=== PATIENT | male | born 1940 | race Caucasian/White ===

== ENCOUNTER 2022-09-26 10:38 | Outpatient (CLI) | payer MEDICARE, SELFPAY ==
[2022-09-26 12:06] LABS: Chloride* 108 mmol/L (96-114); Potassium* 4.3 mmol/L (3.6-5.1); Sodium* 142 mmol/L (135-149)
[2022-09-26 12:08] LABS: Carbon Dioxide* 28 mmol/L (20-32); Cholesterol* 120 mg/dL (90-199); Creatinine* 1.7 mg/dL (0.5-1.5); Estimated Glomerular Filt Rate 40 ml/min
[2022-09-26 12:09] LABS: Blood Urea Nitrogen* 28 mg/dL (7-30); Calcium* 9.7 mg/dL (8.4-10.6); Glucose* 94 mg/dL (60-115); Triglycerides* 102 mg/dL (40-149); Uric Acid* 5.6 mg/dL (2.2-8.4)
[2022-09-26 12:10] LABS: HDL Cholesterol* 48 mg/dL (>=40); LDL Cholesterol Calculated 52 mg/dL (<100)
== END 2022-09-26 10:39 | disposition home or self-care (01) ==
LOC: NFLDREF 10:38
PROVIDERS: PCP Internal Medicine; Visit Provider Internal Medicine
DX: Z00.00 Encounter for general adult medical examination without abnormal findings (principal); Z13.6 Encounter for screening for cardiovascular disorders; M10.9 Gout, unspecified
CPT/HCPCS: 80048; 80061; 84550

== ENCOUNTER 2023-10-16 10:00 | Outpatient (CLI) | payer MEDICARE, SELFPAY | END 2023-10-16 10:01 | disposition home or self-care (01) | LOC: NFLDREF 10-18 08:47 | PROVIDERS: PCP Internal Medicine; Referring Provider Internal Medicine; Visit Provider Internal Medicine | DX: I10 Essential (primary) hypertension (principal); E78.5 Hyperlipidemia, unspecified; M10.9 Gout, unspecified | CPT/HCPCS: 80048; 80061; 84550 ==

== ENCOUNTER 2023-12-01 10:00 | Outpatient (RCR) | payer MEDICARE, SELFPAY ==
--- NOTE | 2023-11-15 16:59 | PT.OPEX ---
[facility] Eval PT [facility] Outpatient Eval Start: 11/15/23 15:29 Freq: Status: Active Protocol: Document 11/15/23 15:30 NLR (Rec: 11/15/23 16:47 NLR [id number]) E-signed By Sugar Henry DPT Physical Therapy Outpatient Evaluation Insurance Information Recert Due Date 02/13/24 Insurance Name Medicare B Insurance Information/Comments AARP Medicare Complete Medical Diagnosis S93.609A Sprain of foot, initial encounter Treating Diagnosis M25.572 Pain in L ankle/foot Referring MD Sylvia Orozco PA-C Subjective Subjective Patient arrives for PT evaluation stating he was seen by a chiropractor that had him do heel raises about a month ago that caused left lateral ankle and foot pain. Pain improved on it's own, but was not gone. He recently returned from [place], and yesterday when he got out of his car, he stepped weird and felt a crunch. He now presents with left lateral foot and ankle pain and moderate pitting edema. Pain Comments Pain is sharp and achy, lateral left foot and ankle. 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 Preferred Name LILLIE Precautions Treatment Precautions/Contraindications None known. Weight Bearing Status Weight Bear as Tolerated Therapy Limitations/Systems Review Not Limited Objective Other/Pertinent Objective ROM: Grossly WFL, slight limitation with eversion B and symmetrical STRENGTH: Left ankle eversion 4/5 with pain, inversion 4+/5 no pain PALPATION: No tenderness at left anterior talofibular ligament. Tender at fibularis insertion on lateral 5th metatarsal EDEMA: Mild to moderate pitting edema left lateral foot and ankle GAIT: Patient ambulating L WBAT with crutches, tends to lean forward over crutches. Assessment Assessment/Impression Patient is a very pleasant 83 year old male who presents with acute on chronic left lateral ankle pain and edema that started approximately one month ago when a chiropractor had his do heel raises and then he had about three days of pain, now aggravated yesterday when stepping out of his car he felt a crack and presents with pain and swelling. Likely injury to fibularis longus and or brevis , or differential high ankle sprain or combination of both. He now presents with pain with eversion, moderate pitting edema and lateral foot pain. Skilled PT is appropriate for edema management, pain control and strengthening when appropriate to minimize likelihood of recurrance. Primary Functional Limitations Difficulty walking without crutches due to pain. Plan of Care Rehabilitation Potential Excellent Rehabilitation Potential Comments Patient is otherwise healthy and motivated to improve in order to return to prior level of function. Coordination/Communication With Referral Source Treatment Plan/Direct Interventions Gait Training,Ice/Cold/ Vasopneumatic,Manual Therapy, Neuromuscular Re-ed,Self-Care/ Home Management,Therapeutic Activities,Therapeutic Exercises Frequency/Duration 1X/week for 6-10 visits Evaluation Billing Untimed Code Treatment Minutes 30 PT Eval No Charge No Complexity Low Certification Information Initial Certification Date 11/15/23 Ending Certification Date 02/13/24 Provider Signature Shows Agreement With POC & Medical Necessity Physician Signature & Date Requested Please Sign/Date Here Physician Comment/Change : Physician NPI Number #
== END 2023-12-01 17:23 | disposition home or self-care (01) ==
PROVIDERS: PCP Internal Medicine; Visit Provider Physician Assistant
DX: S93.602A Unspecified sprain of left foot, initial encounter (principal); Z51.89 Encounter for other specified aftercare
CPT/HCPCS: 97110; 97116; 97140; 97161; 97530

== ENCOUNTER 2024-10-17 09:29 | Outpatient (CLI) | payer MEDICARE, SELFPAY | END 2024-10-17 09:30 | disposition home or self-care (01) | LOC: NFLDREF 10-21 00:53 | PROVIDERS: PCP Internal Medicine; Referring Provider Internal Medicine; Visit Provider Internal Medicine | DX: E78.5 Hyperlipidemia, unspecified (principal); I10 Essential (primary) hypertension; M10.9 Gout, unspecified | CPT/HCPCS: 80048; 80061; 84550 ==

== ENCOUNTER 2025-07-16 12:22 | Outpatient (CLI) | payer MEDICARE, SELFPAY | END 2025-07-16 12:23 | disposition home or self-care (01) | LOC: AMB 07-21 15:42 | PROVIDERS: PCP Internal Medicine; Visit Provider Family Medicine | DX: S49.91XA Unspecified injury of right shoulder and upper arm, initial encounter (principal); S49.92XA Unspecified injury of left shoulder and upper arm, initial encounter; W10.9XXA Fall (on) (from) unspecified stairs and steps, initial encounter; Y92.008 Other place in unspecified non-institutional (private) residence as the place of occurrence of the external cause | CPT/HCPCS: A0425; A0427 ==

== ENCOUNTER 2025-07-16 13:05 | Emergency (ER) | payer MEDICARE, SELFPAY ==
[2025-07-16] VITALS (21 sets, daily range): BP systolic 116–144; BP diastolic 53–98; PULSE 50–74; RESP 14–25; TEMP 35.9; O2SAT 96–98; BMI 27.4
--- NOTE | 2025-07-16 13:42 | CRLHL7_ITS ---
For Patients: As a result of the Century Cures Act, medical imaging exams and procedure reports are released immediately into your electronic medical record. You may view this report before your referring provider. If you have questions, please contact your health care provider. Indication: Pain over the anterior shoulder after fall Comparison: None available. Technique: AP and lateral views right shoulder were obtained. Findings: There is no displaced fracture or dislocation. Somewhat high-riding humeral head commensurate with likely chronic rotator cuff pathology with moderate degenerative changes of the acromioclavicular and glenohumeral joints. There are circumscribed calcified lesions within the visualized upper arm and chest wall soft tissues likely representing calcified phleboliths. Impression: Severe degenerative changes of the acromioclavicular and glenohumeral joint with somewhat high-riding humeral head commensurate with chronic rotator cuff pathology. Scattered calcified circumscribed lesions within the visualized soft tissues may represent small calcified phleboliths. Dictated by Andi Stone MD @ 07/16/2025 3:14:42 PM (Electronically Signed)
--- NOTE | 2025-07-16 13:42 | CRLHL7_ITS ---
For Patients: As a result of the Century Cures Act, medical imaging exams and procedure reports are released immediately into your electronic medical record. You may view this report before your referring provider. If you have questions, please contact your health care provider. Indication: Pain over the anterior shoulder after fall Comparison: None available. Technique: AP and lateral views left shoulder were obtained. Findings: There is no displaced fracture or dislocation. Degenerative changes of the acromioclavicular and glenohumeral joints are appreciated with mildly high-riding humeral head commensurate with sequela of chronic rotator cuff pathology. The soft tissues are unremarkable. Impression: Degenerative changes of the shoulder without displaced fracture. Dictated by Andi Stone MD @ 07/16/2025 3:15:43 PM (Electronically Signed)
--- NOTE | 2025-07-16 13:42 | CRLHL7_ITS ---
For Patients: As a result of the Century Cures Act, medical imaging exams and procedure reports are released immediately into your electronic medical record. You may view this report before your referring provider. If you have questions, please contact your health care provider. Indication: Injury Technique: CT examination of the facial bones was performed. Imaging was acquired in the axial plane. Contrast is not administered. Sagittal and coronal reformatted imaging was performed. The study was acquired from above the frontal sinuses through below the hyoid bone. Comparison: None Findings: Soft tissue swelling in the left preseptal orbital and subcutaneous frontal area on the left. The globe is intact. No foreign bodies observed. No fracture, dislocation or destructive process. Minor paranasal sinus mucosal inflammatory disease. Incidental torus mandibularis Impression: Soft tissue injury/swelling in the left subcutaneous frontal area and left supraorbital area. No foreign bodies. The subjacent globe appears normal. No fracture, dislocation or destructive process. Please note that all CT scans at this facility use dose modulation, iterative reconstruction, and/or weight-based dosing when appropriate to reduce radiation dose to as low as reasonably achievable. Dictated by Zander Sanders MD @ 07/16/2025 2:50:46 PM (Electronically Signed)
--- NOTE | 2025-07-16 13:43 | CRLHL7_ITS ---
For Patients: As a result of the Century Cures Act, medical imaging exams and procedure reports are released immediately into your electronic medical record. You may view this report before your referring provider. If you have questions, please contact your health care provider. INDICATION: Fall down steps. TECHNIQUE: CT chest, abdomen and pelvis acquired 100 cc Omnipaque 350 IV contrast. COMPARISON: Abdominal CT dated 05/09/2019. FINDINGS: CHEST: No consolidation. No significant ground-glass. Mild bibasilar reticulation as evidence for mild fibrosis. No pleural effusion or pneumothorax. No anterior mediastinal hematoma seen. No mediastinal or hilar lymphadenopathy. The heart is normal in size. No significant pericardial effusion. There is motion within the aortic root which limits evaluation. No aortic dissection is seen. A 4.1 centimeter ascending aortic aneurysm is seen. No inflammatory fat stranding is seen or abnormal wall thickening. The descending aorta is normal in caliber. No axillary lymphadenopathy. There is likely a small sebaceous cyst within the midline chest measuring 12 millimeters (series 4, image 55). No hematoma is seen or significant posttraumatic inflammation. No fracture seen. ABDOMEN AND PELVIS: The liver is normal in size. A subcentimeter hypoattenuating lesion within the right pollo liver is too small to characterize and likely represents a tiny cyst (series 9, image 19). There is no perihepatic fluid or stranding. The gallbladder is partially distended with mild motion artifact obscuring. No evidence of acute cholecystitis. No biliary ductal dilatation. The spleen is normal in size and obscured by motion. No fluid or stranding is seen. The pancreas is partially obscured by motion as well without definite abnormality. The adrenal glands demonstrate thickening and nodularity which is not substantially changed compared to 2019 and likely benign. Redemonstrated is near complete cystic replacement of the left kidney and to a lesser extent the right kidney as evidence for polycystic kidney disease. A few of the lesions demonstrate internal septations. No definite nodular soft tissue component is seen. There is no hydronephrosis. Overall the lesions have increased in size compared to 2019. The largest on the left on axial images measures 10.5 centimeters, previously approximately 9.3 centimeters. The largest on the right on axial images measures 9.5 centimeters, previously proximal; 6 centimeters. The urinary bladder is distended without substantial thickening or stranding. Stool throughout the colon. Diverticulosis is present without evidence of acute diverticulitis. The bowel is displaced by the patient`s renal lesions. The small bowel is nondilated without evidence of a small-bowel obstruction. There are some areas of swelling of the small bowel without evidence of acute obstructing hernia. The stomach is partially distended and obscured by motion. No free air. No ascites. No organized drainable fluid collection. No evidence of traumatic hernia. No retroperitoneal hematoma seen. No gross lymphadenopathy. The prostate is prominent. No subcutaneous hematoma is seen or significant inflammatory fat stranding. Bone windows demonstrate no acute fracture. IMPRESSION: 1. Examination is limited by motion. No gross CT evidence of acute traumatic injury within the chest, abdomen and pelvis. 2. A 4.0 centimeter ascending aortic aneurysm. 3. Redemonstrated findings of polycystic kidney disease with overall increase in size of lesions compared to 2019. Please note that all CT scans at this facility use dose modulation, iterative reconstruction, and/or weight-based dosing when appropriate to reduce radiation dose to as low as reasonably achievable. Dictated by Prince Wise MD @ 07/16/2025 2:58:05 PM (Electronically Signed)
--- NOTE | 2025-07-16 13:43 | CRLHL7_ITS ---
For Patients: As a result of the Century Cures Act, medical imaging exams and procedure reports are released immediately into your electronic medical record. You may view this report before your referring provider. If you have questions, please contact your health care provider. INDICATION: Injury COMPARISON: None TECHNIQUE: CT examination of the head was performed as axial sections without intravenous contrast. Images were obtained from the vertex of the skull through the skull base. Please note that all CT scans at this facility use dose modulation, iterative reconstruction, and/or weight-based dosing when appropriate to reduce radiation dose to as low as reasonably achievable. FINDINGS: The brain shows no sign of mass lesion, mass effect, hemorrhage, or edema. There are involutional changes. There is mild cortical atrophy and there is mild white matter disease. There is no hydrocephalus. The visualized portions of the orbits are normal in appearance. Subcutaneous hematoma/soft tissue injury in the left supraorbital/left frontal area. No subjacent calvarial fracture. The osseous structures are normal in appearance with no sign of abnormality in the skull base or calvarium. IMPRESSION: 1. Involutional changes. No acute intracranial posttraumatic findings. 2. Soft tissue injury/subcutaneous hematoma in the left supraorbital/subcutaneous frontal area. No visible regional orbital or skull fracture. Please refer to the separate facial bone report. Please note that all CT scans at this facility use dose modulation, iterative reconstruction, and/or weight-based dosing when appropriate to reduce radiation dose to as low as reasonably achievable. Dictated by Zander Sanders MD @ 07/16/2025 2:45:19 PM (Electronically Signed)
--- NOTE | 2025-07-16 13:43 | CRLHL7_ITS ---
For Patients: As a result of the Century Cures Act, medical imaging exams and procedure reports are released immediately into your electronic medical record. You may view this report before your referring provider. If you have questions, please contact your health care provider. INDICATION: Injury COMPARISON: None TECHNIQUE: CT examination of the cervical spine is performed without contrast using spiral technique. Thin axial, sagittal and coronal reconstructions were made. Please note that all CT scans at this facility use dose modulation, iterative reconstruction, and/or weight-based dosing when appropriate to reduce radiation dose to as low as reasonably achievable. FINDINGS: : There is straightening which is fused to the muscle spasm or positioning. No bridgette posttraumatic malalignment. Moderate degenerative changes diffusely. No visible acute fracture, dislocation or destructive process. Atherosclerotic vascular calcifications. IMPRESSION: Straightening. Degenerative changes. No visible acute fracture, dislocation or destructive process. Please note that all CT scans at this facility use dose modulation, iterative reconstruction, and/or weight-based dosing when appropriate to reduce radiation dose to as low as reasonably achievable. Dictated by Zander Sanders MD @ 07/16/2025 2:47:50 PM (Electronically Signed)
[2025-07-16 14:07] LABS: Creatinine, Point-of-Care* 1.7 mg/dl (0.6-1.3)
--- NOTE | 2025-07-16 14:32 | ED_ITS ---
HPI - Fall General Date Seen: 07/16/25 Chief Complaint: Fall/Minor Trauma Stated Complaint: Fall Time Seen by Provider: 07/16/25 13:36 Source: patient Mode of arrival: EMS Limitations: no limitations History of Present Illness HPI Narrative: Patient is an 84-year-old male with a history of chronic kidney disease stage 3, essential hypertension presenting to the emergency department after a fall. States he tripped and fell down 13 [address]ed steps. His family is in the room with him and states he has been acting normal since then. He states that anything hurts right now with his bilateral anterior shoulders. States he did hit his head and does have abrasions to his forehead. Denies any headaches. Denies chest pain, abdominal pain, back pain, extremity pain. Reiterates his only pain right now is in the shoulders. Family states he is acting normally. He is not on any blood thinners. No other concerns noted at this time. States there is no lightheadedness or dizziness before or after the fall. Related Data Home Medications ?Medication ?Instructions ?Recorded ?Confirmed vardenafil 10 mg tablet 10 mg PO QDAY PRN 08/11/22 0 11/11/24 aspirin 81 mg capsule 81 mg PO QDAY 10/20/2211/11 multivitamin 1 tab PO QAM 10/20/22 Previous Rx's ?Medication ?Instructions ?Recorded epinephrine 0.3 mg/0.3 mL 0.3 mg (0.3 mL) IM ONCE PRN 10/29/22 injection, auto-injector anaphylaxis #2 ea allopurinol 100 mg tablet 100 mg PO QDAY #90 tabs 10/05 02/28 carvedilol 12.5 mg tablet 12.5 mg PO BID #180 tabs clonidine HCl 0.1 mg tablet 0.05 - 0.1 mg (0.5 - 1 x 0 .1 mg) 10/21/24 PO BID #180 tabs lisinopril 40 mg tablet 40 mg PO QDAY #90 tabs 10/21 potassium chloride 10 mEq 10 meq PO QDAY #90 caps 10/05 02/28 capsule,extended release simvastatin 20 mg tablet 20 mg PO QHS #90 tabs triamterene 75 1 tab PO QDAY #90 tabs 10/21 mg-hydrochlorothiazide 50 mg tablet Allergies Allergy/AdvReac Type Severity Reaction Status Date / Time bee venom protein (honey bee) Allergy Severe Anaphylaxis Verified 11/11/24 10:32 amlodipine Allergy Unknown swelling Verified 11/11/24 10:32 Review of Systems Status of ROS: Reports: 10 or more systems reviewed and unremarkable except as noted in History and below PFSH PFSH Surgical History History of malignant melanoma ?Z85.820 - Personal history of malignant melanoma of skin (ICD-10) History of squamous cell carcinoma excision ?Z98.890 - Other specified postprocedural states (ICD-10) ?Z85.9 - Personal history of malignant neoplasm, unspecified (ICD-10) Status post cataract extraction ?Z98.49 - Cataract extraction status, unspecified eye (ICD-10) Otosclerosis (03/23/09) ?H80.90 - Unspecified otosclerosis, unspecified ear (ICD-10) History of right inguinal hernia repair (03/23/09) ?Z98.890 - Other specified postprocedural states (ICD-10) ?Z87.19 - Personal history of other diseases of the digestive system (ICD-10) Social History Narrative: non-smoker, no alcohol use. 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 What is your current living situation?: I presently have a place to live Problems where you live: no known problems In the past 12 months, utilities in danger of being shut off: no In past 12 months, lack of transportation kept you from medical appts, meetings, work, or getting things needed for daily living: no In the past 12 mos, have been you worried that your food would run out before you had money to buy more?: never true In the past 12 mos, the food you bought just didn't last and you didn't have money to buy more?: never true How often does anyone, including family, friends and others, physically hurt you : never How often does anyone, including family, friends and others, insult or talk down to you: never How often does anyone, including family, friends and others, threaten you with harm: never How often does anyone, including family, friends and others, scream or curse at you: never Exam Narrative: Exam Narrative: Airway: Airway patent, Breathing: Good bilateral air movement, no signs of tracheal deviation normal appearing chest wall movement, oxygenating appropriately Circulation: No signs of obvious hemorrhage, pulses +2 bilaterally in all extremities Disability: GCS 15 Constitutional: Pt is oriented to person, place, and time. Pt appears well- developed and well-nourished. HENT: Head: Abrasion noted above left eye. Mouth/Throat: Oropharynx is clear and moist. No hematomas or lacerations or abrasions to face or scalp OP clear, no blood, no malocclusion, dentition intact Nares clear, no nasal septal hematoma TMs clear, no hemotympanum Midface stable Eyes: Conjunctivae and EOM are normal. Pupils are equal, round, and reactive to light. Neck: C-spine midline nontender, no step-offs Cardiovascular: Normal rate, regular rhythm and normal heart sounds. Pulmonary/Chest: Effort normal and breath sounds normal. No respiratory distress. He has no wheezes. CTA bilaterally Abdominal: Soft. Bowel sounds are normal. Pt exhibits no distension. There is no tenderness. Musculoskeletal: Tenderness noted bilateral on the acromion. No other family numbness noted. No chest wall tenderness, no deformities, full ROM extremities, Chest wall stable, Pelvis stable and non-tender, No vertebral TTP and spine without stepoffs Neurological: Pt is alert and oriented to person, place, and time., Moving all extremities willfully, able to wiggle all fingers and toes, Sensation grossly intact, GCS 15 Skin: Skin is warm and dry. No abrasions, no lacerations Psychiatric: Behavior is appropriate for situation Const: Vital Signs, click to edit/add: Vital Signs - 24 hr 07/16/25 13:16 07/16/25 13:17 07/16/25 13:18 Temperature Pulse Rate Pulse Rate [Pulse Oximeter] Respiratory Rate 21 22 20 Blood Pressure 119/69 124/98 H Blood Pressure [Ri ght Upper Arm] Pulse Oximetry Oxygen Delivery Me thod 07/16/25 13:19 07/16/25 13:30 07/16/25 13:32 Temperature 96.6 F L Pulse Rate Pulse Rate [Pulse Oximeter] 50 L Respiratory Rate 16 18 24 Blood Pressure 116/54 L Blood Pressure [Ri ght Upper Arm] 119/69 Pulse Oximetry 98 Oxygen Delivery Me thod Room Air 07/16/25 13:33 07/16/25 13:47 07/16/25 14:00 Temperature Pulse Rate Pulse Rate [Pulse Oximeter] Respiratory Rate 23 14 18 Blood Pressure 126/57 L Blood Pressure [Ri ght Upper Arm] Pulse Oximetry Oxygen Delivery Me thod 07/16/25 14:02 07/16/25 14:36 07/16/25 14:36 Temperature Pulse Rate Pulse Rate [Pulse Oximeter] Respiratory Rate 20 Blood Pressure 126/53 L 144/61 H 144/61 H Blood Pressure [Ri ght Upper Arm] Pulse Oximetry Oxygen Delivery Me thod 07/16/25 14:47 07/16/25 14:53 07/16/25 15:00 Temperature Pulse Rate 71 72 Pulse Rate [Pulse Oximeter] Respiratory Rate 19 Blood Pressure 136/61 Blood Pressure [Ri ght Upper Arm] Pulse Oximetry 97 96 Oxygen Delivery Me thod 07/16/25 15:02 07/16/25 15:03 07/16/25 15:15 Temperature Pulse Rate 72 72 69 Pulse Rate [Pulse Oximeter] Respiratory Rate 19 25 H 16 Blood Pressure 137/69 Blood Pressure [Ri ght Upper Arm] Pulse Oximetry 96 97 96 Oxygen Delivery Me thod 07/16/25 15:17 07/16/25 15:18 07/16/25 15:30 Temperature Pulse Rate 67 70 74 Pulse Rate [Pulse Oximeter] Respiratory Rate 16 15 21 Blood Pressure 127/65 Blood Pressure [Ri ght Upper Arm] Pulse Oximetry 96 97 96 Oxygen Delivery Me thod 07/16/25 15:32 Temperature Pulse Rate 72 Pulse Rate [Pulse Oximeter] Respiratory Rate 15 Blood Pressure 134/75 Blood Pressure [Ri ght Upper Arm] Pulse Oximetry 96 Oxygen Delivery Me thod Course Vital Signs Vital signs: Initial Vital Signs Respiratory Rate 21 07/16/25 13:16 Blood Pressure 119/69 07/16/25 13:16 Blood Pressure Mean 85 07/16/25 13:16 Vital Signs Respiratory Rate 21 07/16/25 13:16 Blood Pressure 119/69 07/16/25 13:16 Temperature 96.6 F L 07/16/25 13:19 Pulse Rate 72 07/16/25 15:32 Respiratory Rate 15 07/16/25 15:32 Blood Pressure 134/75 07/16/25 15:32 Pulse Oximetry 96 07/16/25 15:32 Oxygen Delivery Method Room Air 07/16/25 13:19 Medications Administered Medications: Discontinued Medications Generic Name Dose Route Start Last Admin Trade Name Melissa PRN Reason Stop Dose Admin Morphine Sulfate 4 mg 07/16/25 14:57 07/16/25 15:02 Morphine 4 Mg/Ml Inj IVP 07/16/25 14:58 4 mg ONCE ONE Administration MDM - Fall MDM Narrative Medical decision making narrative: Patient is an 84-year-old male presenting to the emergency department after a fall. Based on description this was a mechanical fall. Considering mechanism action will order CT scan of the head, cervical spine, facial bones, chest abdomen pelvis. He does have chronic kidney disease but do believe a contrast is necessary. Point of care creatinine was 1.7. And will also x-ray both of his shoulders as those hurt. CT scan of his head shows a left supraorbital hematoma as interpreted by myself the radiologist. CT scan of cervical spine and face reviewed by myself and the radiologist showed no acute concerning abnormalities. CT scan of the chest abdomen pelvis interpreted by myself and the radiologist shows increase in size of polycystic kidney disease lesions along with a 4.0 cm ascending aortic aneurysm. He can follow up outpatient for this. X-ray showed no acute concerning findings as interpreted by myself and the radiologist. The abrasion to the left forehead is not amenable to suturing or closure. He will be discharged. Lab Data Labs: Lab Results 07/16/25 Range/Units 13:52 POC Creatinine 1.7 H (0.6-1.3) mg/dl Imaging Data CT scan head: Attestation: I have reviewed the pertinent imaging results. Radiologist's impression: 1. Involutional changes. No acute intracranial posttraumatic findings. 2. Soft tissue injury/subcutaneous hematoma in the left supraorbital/subcutaneous frontal area. No visible regional orbital or skull fracture. Please refer to the separate facial bone report. Please note that all CT scans at this facility use dose modulation, iterative reconstruction, and/or weight-based dosing when appropriate to reduce radiation dose to as low as reasonably achievable. Dictated by Zander Sanders MD @ 07/16/2025 2:45:[address] scan facial bones: Attestation: I have reviewed the pertinent imaging results. Radiologist's impression: Soft tissue injury/swelling in the left subcutaneous frontal area and left supraorbital area. No foreign bodies. The subjacent globe appears normal. No fracture, dislocation or destructive process. Please note that all CT scans at this facility use dose modulation, iterative reconstruction, and/or weight-based dosing when appropriate to reduce radiation dose to as low as reasonably achievable. Dictated by Zander Sanders MD @ 07/16/2025 2:50:[address] scan cervical spine: Attestation: I have reviewed the pertinent imaging results. Radiologist's impression: Straightening. Degenerative changes. No visible acute fracture, dislocation or destructive process. Please note that all CT scans at this facility use dose modulation, iterative reconstruction, and/or weight-based dosing when appropriate to reduce radiation dose to as low as reasonably achievable. Dictated by Zander Sanders MD @ 07/16/2025 2:47:[address] Chest/Ab/Pelvis: Attestation: I have reviewed the pertinent imaging results. Radiologist's impression: 1. Examination is limited by motion. No gross CT evidence of acute traumatic injury within the chest, abdomen and pelvis. 2. A 4.0 centimeter ascending aortic aneurysm. 3. Redemonstrated findings of polycystic kidney disease with overall increase in size of lesions compared to 2019. Please note that all CT scans at this facility use dose modulation, iterative reconstruction, and/or weight-based dosing when appropriate to reduce radiation dose to as low as reasonably achievable. Dictated by Prince Wise MD @ 07/16/2025 2:58:05 PM X-ray left shoulder: Attestation: I have reviewed the pertinent imaging results. Radiologist's impression: Degenerative changes of the shoulder without displaced fracture. Dictated by Andi Stone MD @ 07/16/2025 3:15:43 PM X-ray right shoulder: Attestation: I have reviewed the pertinent imaging results. Radiologist's impression: Severe degenerative changes of the acromioclavicular and glenohumeral joint with somewhat high-riding humeral head commensurate with chronic rotator cuff pathology. Scattered calcified circumscribed lesions within the visualized soft tissues may represent small calcified phleboliths. Dictated by Andi Stone MD @ 07/16/2025 3:14:42 PM Discharge Plan Discharge Clinical Impression: Avulsion of skin Closed head injury Qualifiers: Encounter type: initial encounter Qualified Code(s): S09.90XA - Unspecified injury of head, initial encounter Patient Disposition: Home, Self-Care Condition: Stable Instructions: Head Injury (DC) Additional Instructions: CT scan shows enlarging of the lesions associated with the polycystic kidney disease. You also have a 4 cm ascending aortic aneurysm. Aneurysm was of this size typically do not require surgical intervention by do recommend following up with your primary care provider. Return to emergency department for new or worsening symptoms. Use the Percocet as needed for pain but be careful as it does increase your fall risk. You can take half a pill at a time if needed. Percocet provided via [employer]. Do not take Tylenol as Tylenol is and the Percocet the ready Prescriptions: No Action aspirin 81 mg capsule 81 mg PO QDAY multivitamin Tablet 1 tab PO QAM allopurinol 100 mg tablet 100 mg PO QDAY Qty: 90 3RF carvedilol 12.5 mg tablet 12.5 mg PO BID Qty: 180 3RF Rx Instructions: must administer with a meal/food clonidine HCl 0.1 mg tablet 0.05 - 0.1 mg PO BID Qty: 180 3RF lisinopril 40 mg tablet 40 mg PO QDAY Qty: 90 3RF potassium chloride 10 mEq capsule, extended release 10 meq PO QDAY Qty: 90 3RF triamterene-hydrochlorothiazid 75-50 mg tablet 1 tab PO QDAY Qty: 90 3RF simvastatin 20 mg tablet 20 mg PO QHS Qty: 90 3RF vardenafil 10 mg tablet 10 mg PO QDAY PRN Rx Instructions: TAKE ONE TABLET ONE HOUR BEFORE INTERCOURSE epinephrine 0.3 mg/0.3 mL auto-injector 0.3 mg IM ONCE PRN (Reason: anaphylaxis) Qty: 2 1RF Follow Up/Referrals: Mary Myles MD [Primary Care Provider, Internal Medicine] Stand Alone Forms: [employer] Info Instructions
[2025-07-16] MEDS: MORPHINE 4 MG/ML INJ IVP (15:02)
--- OUTSIDE RECORDS SUMMARY | 2025-07-16 16:32 | XMS_ITS | Clinical Summary ---
Author Organization [facility] Address [address] [place] [id number] Care Team Providers Care Teacher Home Therapy Name Role Phone Mary Myles MD Primary Care Provider [phone] Crow Miller MD Unavailable [phone] Crow Miller MD Unavailable [phone] Allergies Active AllergyReactionsCriticalityNoted DateCommentsBee VenomUnknown,Other (See Comments)08/21/2018 Unknown Medications MedicationSigDispense QuantityRefillsLast FilledStart DateEnd DateStatus triamterene-hydrochlorothiazide (MAXZIDE) 75-50 MG per tablet Indications:Cataracts, both eyesTake 0.5 tablets by mouth dailyActive propranolol HCl 60 MG TABS Indications:Cataracts, both eyesTake 60 mg by mouth dailyActive potassium chloride (K-DUR) 10 MEQ tablet Indications:Cataracts, both eyesTake 10 tablets by mouth dailyActive lisinopril (PRINIVIL,ZESTRIL) 10 MG tablet Indications:Cataracts, both eyesTake 10 mg by mouth dailyActive aspirin 81 MG tablet Indications:Cataracts, both eyesTake 81 mg by mouth dailyActive carvedilol (COREG) 12.5 MG tablet 06/05/2019Active simvastatin (ZOCOR) 20 MG tablet 05/06/2019Active allopurinol (ZYLOPRIM) 100 MG tablet Take 1 tablet by mouth daily at 2 pm3Active Vardenafil HCl (LEVITRA PO) Take 10 mg by mouth daily as pbxyso641Discontinued(Patient Discharge) Family History Medical HistoryRelationCommentsHypertensionFatherHypertensionMotherDiabetesNo family hx ofGlaucomaNo family hx ofMacular DegenerationNo family hx ofRelation StatusCommentsFatherMother Social History Tobacco UseTypesPacks/DayYears UsedDateSmoking Tobacco: FormerCigarettes Smokeless Tobacco: NeverAlcohol UseStandard Drinks/WeekCommentsYes0 (1 standard drink = 0.6 oz pure alcohol)5 drinks per weekPHQ-2AnswerDate RecordedPHQ-2 Score dolescent EducationAnswerDate RecordedGetting School Help NeededNot on file04/28/2023Sex and Gender InformationValueDate RecordedSex Assigned at BirthNot on fileLegal HjmRmqx3710/29/2014 12:50 PM CDTGender IdentityNot on file Sexual OrientationNot on file Last Filed Vital Signs Vital SignReadingTime TakenCommentsBlood Etlzxyxf032/7303/16/2015 8:52 AM CDT Nrubo721303/16/2015 7:11 AM AWDUmqdofohoch38 ??C (96.8 ??F)03/16/2015 7:11 AM CDT Respiratory Wfqz6099 8:52 AM CDTOxygen Xpukxskbra30%03/16/2015 8:52 AM CDTInhaled Oxygen Concentration--Vipmow33.9 kg (185 lb)03/16/2015 7:11 AM CDT Qodskc577.7 cm (5' 8)03/16/2015 7:11 AM CDTBody Mass Index28.1308 7:11 AM CDT Plan of Treatment Health MaintenanceDue DateLast DoneCommentsADVANCE CARE NNVWTBOY08/10/1942NNUAL REVIEW OF HM UNVOQN43 1941 4884TMKQJ68/10/1942URIC ACID1941MEDICARE ANNUAL WELLNESS VISIT2006RSV VACCINE (1 - 1-dose 75+ series)2016ZOSTER VACCINE (3 of 3), 03/23/2009FALL RISK HEISQDPFLB22/04/2022 10/08/2020, 04/19/2018COVID-19 VACCINE ( season)5004/24/2024, 01/10/2024, 06/06/2023, Additional history existsINFLUENZA VACCINE (#1) 509/, 04/17/2023, 07/06/2022, Additional history exists DTAP/TDAP/TD VACCINE (3 - Td or Tdap)/, 06/06/2012 PNEUMOCOCCAL VACCINE 50+ LOPTYPpgxgmofs19/20/2015, 11/22/2006PHQ-2 (once per calendar year)Kmeezltin64/10/2025, 10/08/2020, 07/25/2019HPV VACCINE (No Doses Required)CompletedMENINGITIS VACCINEAged OutNo longer eligible based on patient's age to complete this topic Medical Devices ImplantedTypeAreaManufacturerDevice IdentifierShelf Expiration DateModel / Serial / LotEye Imp Iol Jonathon Toric Acrysof Iq Pcl Sn6at5 23.0 Implanted:Qty: 1 [facility] 02[facility]23/[facility]11/03/[id number] 23.0 / [id number] / Eye Imp Iol Jonathon Toric Acrysof Iq Pcl Sn6at5 20.0 Implanted:Qty: 1 on 03/16/2015 [facility]05/06/[id number] 20.0 / [id number] / Insurance * Guarantor: JAGRUTI UMAccount TypeRelation to PatientDate of BirthPhone Billing AddressSpecial GuarantorOther [address] [place] [id number] * Guarantor: PHYSICIANSWALTAccokvng TypeRelation to PatientDate of BirthPhone Billing AddressEmployer RelatedOther [address] [facility] [place] [address] Care Teams Team MemberRelationshipSpecialtyStart DateEnd Date Mary Myles MD [facility] [address] [place] [address] PCP - GeneralInternal Medicine10/29/14 Crow Miller MD [address] [place] [address] Ophthalmology04/29/16 Crow Miller MD [address] [place] [id number] Assigned Surgical Provider11/27/24
--- OUTSIDE RECORDS SUMMARY | 2025-07-16 16:33 | XMS_ITS | Clinical Summary ---
Author Organization [facility] Address [address] [place] [address] Care Team Providers Care Wire Inspector Name Role Phone Mary Myles MD Primary Care Provider [phone] Allergies Active AllergyReactionsCriticalityNoted DateCommentsVenom-Honey Bee*Unknown - Pt Doesn't Xfzqghye77/15/2019 Medications MedicationSigDispense QuantityRefillsLast FilledStart DateEnd DateStatus EPINEPHrine (EPIPEN) 0.3 mg/0.3 mL injection Inject 1 pen intramuscular one time if needed.08/03/2016Active aspirin chewable 81 mg chewable tablet Take 1 tablet by mouth once daily.Active lisinopril (PRINIVIL; ZESTRIL) 10 mg tablet Take 1 tablet by mouth once daily.04/30/2018Active potassium chloride (KLOR-CON 10; K-TAB) 10 mEq Controlled-Release tablet Take 1 tablet by mouth once daily.04/30/2018Active propranolol ER (INDERAL LA) 60 mg Cs24 Sustained-Release capsule Take 60 mg by mouth once daily.04/30/2018Active simvastatin (ZOCOR) 20 mg tablet Take 1 tablet by mouth once daily.04/30/2018Active triamterene-hydrochlorothiazide, 75-50 mg, (MAXZIDE) 75-50 mg tablet Take 1 tablet by mouth every morning.04/30/2018Active vardenafil (LEVITRA) 10 mg tablet Take 1 tablet by mouth one time if needed.04/30/2018Active Social History Tobacco UseTypesPacks/DayYears UsedDateSmoking Tobacco: FormerSmokeless Tobacco: NeverAlcohol UseStandard Drinks/WeekCommentsYes0 (1 standard drink = 0.6 oz pure alcohol)Sex and Gender InformationValueDate RecordedSex Assigned at BirthNot on fileLegal JxyYqee2408/13/2018 8:39 AM CSTGender IdentityNot on fileSexual OrientationNot on file Last Filed Vital Signs Vital SignReadingTime TakenCommentsBlood Yywfluju321/80008/21/2018 11:15 AM MANAGER ACADEMIC Xipxi127808/21/2018 11:15 AM CSTTemperature--Respiratory Rate--Oxygen Saturation-- Inhaled Oxygen Concentration--Aflpve57.4 kg (186 lb)08/21/2018 11:15 AM MANAGER ACADEMIC Height--Body Mass Index-- Plan of Treatment Health MaintenanceDue DateLast DoneCommentsTetanus /10/1953Depression screening for age 12+4BMI (ht and wt on same day) for age 18+1959 Pneumococcal series for age 50+ (1 of 1 - PCV)1991Zoster (shingles) series for age 50+ (1 of 2)1991RSV vaccine for adults or (1 - 1-dose 75+ series)2016COVID-19 vaccine series ( - 2024- season)2025 Influenza Vaccine (#1)2025Hepatitis B series for 19+Aged OutNo longer eligible based on patient's age to complete this topic Insurance Care Teams Team MemberRelationshipSpecialtyStart DateEnd Date Mary Myles MD [address] [place] [id number] PCP - GeneralInternal Medicine08/13/18
== END 2025-07-16 16:35 | disposition home or self-care (01) ==
PROVIDERS: Emergency Provider Student in an Organized Health Care Education/Training Program; PCP Internal Medicine
DX: M25.512 Pain in left shoulder (principal); M25.511 Pain in right shoulder; S00.81XA Abrasion of other part of head, initial encounter; I71.21 Aneurysm of the ascending aorta, without rupture; W10.9XXA Fall (on) (from) unspecified stairs and steps, initial encounter
CPT/HCPCS: 36415; 70450; 70486; 71260; 72125; 73030; 74177; 82565; 96374; 99284; 99285; 99291; G0390; J2270; Q9967